=== PATIENT | female | born 1955 | race Caucasian/White ===

== ENCOUNTER 2024-05-12 19:18 | Emergency (ER) | payer MEDICARE | END 2024-05-12 20:46 | disposition home or self-care (01) | LOC: ERS 19:18 | DX: J18.9 Pneumonia, unspecified organism (principal); E11.9 Type 2 diabetes mellitus without complications; I10 Essential (primary) hypertension; Z87.891 Personal history of nicotine dependence | CPT/HCPCS: 71045; 87428; 93005 ==

== ENCOUNTER 2024-11-18 08:23 | Outpatient (CLI) | payer MEDICARE | END 2024-11-18 08:24 | disposition home or self-care (01) | LOC: BICMAMMO 08:23 | PROVIDERS: ATTEND Family Medicine | DX: Z12.31 Encounter for screening mammogram for malignant neoplasm of breast (principal); M81.0 Age-related osteoporosis without current pathological fracture | CPT/HCPCS: 77063; 77067; 77080 ==